=== PATIENT | female | born 1945 | race Caucasian/White ===

== ENCOUNTER 2022-10-18 19:25 | Emergency (ER) | payer MEDICARE, BC ==
[~2022-10-18] VITALS: Ht 167.6 cm; Wt 45.4 kg
[2022-10-18] MEDS ORDERED: CEPH500T PO (20:09)
[2022-10-18] MEDS ORDERED: TDAP DIPH,PERTUSS,TET VAC/PF 0.5 ML DISP.SYRIN IM ONE ×2 (20:12→20:15)
[2022-10-18] MEDS ORDERED: CEphaleXIN 500 MG CAPSULE ONE (20:12)
[2022-10-18] MEDS ORDERED: CEphaleXIN 500 MG CAPSULE PO ONE (20:15)
[2022-10-18 20:24] VITALS: BP 130/73; O2SAT 97
== END 2022-10-18 20:24 | disposition home or self-care (01) ==
LOC: ER 19:33
DX: S01.112A Laceration without foreign body of left eyelid and periocular area, initial encounter (principal); X58.XXXA Exposure to other specified factors, initial encounter; Y93.89 Activity, other specified; Y92.89 Other specified places as the place of occurrence of the external cause; Y99.8 Other external cause status
CPT/HCPCS: 90715; A4663